=== PATIENT | female | born 1930 | race Caucasian/White ===

== ENCOUNTER 2016-06-27 15:02 | Emergency (ER) | payer MEDICARE ==
[2015-10-04 07:00] VITALS: BMI 27.6
[~2016-06-27 15:02] MED LIST: ACETAMINOPHEN325 MG PO; ASPIRIN81 MG PO; AUGMENTIN1 TAB.SR .; BACTRIM DS TABL1 TAB PO; BAYER ASPIRIN325 MG PO; BAYER CHEWABLE81 MG PO; BENADRYL25 MG PO; CALAN SR240 MG PO; CALCIUM 600+D T1 TA1 PO; COLACE100 MG PO; COUMADIN5 MG PO; CRANBERRY475 MG; CRANBERRY475 MG PO; DEXTROSE 50%/WA50 M2 IV; DIABETA2.5 MG PO; DIABETA5 MG PO; DICLOFENAC SODI50 MG PO; DITROPAN X5 MG/BOTTL PO; ELIQUIS2.5 MG PO; FERROUS SULFAT325 MG PO; FISH OIL 500 MG1 CAP PO; GLIMEPIRIDE1 MG PO; GLIMEPIRIDE2 MG PO; GLUCAGEN1 MG/VIAL IM; GLUCAGEN1 MG/VIAL SC; GLUCOPHAGE1000 MG PO; HUMALOG 30100 UNITS/ SC; IBUPROFEN400 MG PO; INSTA-GLUCOSE31 GM PO; LASIX40 MG PO; LEVAQUIN250 MG PO; LIPITOR10 MG PO; LISINOPRIL2.5 MG PO; LISINOPRIL5 MG PO; LOVAZA1 G PO; MILK OF MAGNESI30 ML PO; MOBIC7.5 MG PO; NEURONTIN 300300 MG PO; OXYCODONE HCL5 MG PO; PERCOCET 10/3251 TA1 PO; PLAVIX75 MG PO; PROTONIX40 MG PO; REGLAN10 MG PO; ROCEPHIN 1 GM IN1 GM IM; ROCEPHIN 1 GM IN1 GM IV; ULTRAM50 MG PO; VITAMIN B-1250 MG PO; VITAMIN D31000 UNI2 PO; VITAMIN D3400 UNI1 PO; VOLTAREN100 GM TOPICAL; ZANAFLEX4 MG PO; ZOFRAN4 MG PO
[2016-06-27 17:57] LABS: APPEARANCE CLEAR (CLEAR); COLOR YELLOW (YELLOW); SPECIFIC GRAVITY 1.015 (1.005-1.020)
[2016-06-27 17:58] LABS: BILIRUBIN NEGATIVE (NEGATIVE); GLUCOSE NEGATIVE (NEGATIVE); KETONE NEGATIVE (NEGATIVE); LEUKOCYTE ESTERASE NEGATIVE (NEGATIVE); NITRITE NEGATIVE (NEGATIVE); PROTEIN NEGATIVE (NEGATIVE); UROBILINOGEN NORMAL (NORMAL)
[2016-06-27 19:54] LABS: BASOPHILS 0.2 % (0.0-2.0); EOSINOPHILS 2.3 % (0-7); HEMOGLOBIN 10.8 g/dL (12-16); LYMPHOCYTES 27.4 % (15-50); MCH 29.4 pg (26.0-34.0); MCHC 32.7 g/dL (31.0-37.0); MCV 89.9 fL (80.0-100.0); MONOCYTES 8.6 % (2-11); NEUTROPHILS 61.5 % (40-80); PLATELET COUNT 335 10x3/uL (130-400); RBC 3.67 10x6/uL (4.00-5.40); RDW 12.5 % (11.5-14.5); WBC 8.3 10x3/uL (4.8-10.8)
[2016-06-27 20:13] LABS: ALBUMIN 3.5 g/dL (3.4-5.0); ANION GAP 12.3 mmol/L (8-16); BILIRUBIN - TOTAL 0.28 mg/dL (0.2-1.3); CALCIUM 10.1 mg/dL (8.5-10.1); CARBON DIOXIDE 33.2 mmol/L (21.0-32.0); CREATININE - SERUM 1.7 mg/dL (0.6-1.3); POTASSIUM - SERUM 4.5 mmol/L (3.5-5.1); PROTEIN - SERUM 7.9 g/dL (6.4-8.2)
== END 2016-06-27 21:46 | disposition home or self-care (01) ==
LOC: D.ER 15:02
PROVIDERS: Emergency Medicine
DX: R10.32 Left lower quadrant pain (principal); D63.8 Anemia in other chronic diseases classified elsewhere

== ENCOUNTER → 2016-07-04 08:00 | Outpatient (CLI) | payer MEDICARE ==
[2015-10-04 07:00] VITALS: BMI 27.6
== END ==
LOC: D.MRI 08:00
DX: R10.9 Unspecified abdominal pain (principal)

== ENCOUNTER 2016-11-04 21:31 | Inpatient (IN) | payer MEDICARE ==
[~2016-11-04] VITALS: Ht 167.6 cm; Wt 79.8 kg
[2016-11-04 22:08] LABS: BASOPHILS 0.1 % (0-2); EOSINOPHILS 0.5 % (0-7); HEMATOCRIT 31.4 % (36.0-48.0); HEMOGLOBIN 10.6 g/dL (12-16); IMMATURE GRANULOCYTES 0.1 % (0-5); LYMPHOCYTES 7.8 % (15-50); MCHC 33.8 g/dL (31.0-37.0); MCV 85.8 fL (80.0-100.0); MEAN PLATELET VOLUME 9.3 fL (7.4-10.4); MONOCYTES 6.7 % (2-11); NEUTROPHILS 84.8 % (40-80); PLATELET COUNT 345 10x3/uL (130-400); RBC 3.66 10x6/uL (4.00-5.40); RDW 12.5 % (11.5-14.5); WBC 13.9 10x3/uL (4.8-10.8)
[2016-11-04 22:31] LABS: APPEARANCE CLEAR (CLEAR); BILIRUBIN NEGATIVE (NEGATIVE); COLOR YELLOW (YELLOW); GLUCOSE NEGATIVE (NEGATIVE); KETONE NEGATIVE (NEGATIVE); LEUKOCYTE ESTERASE 2+ (NEGATIVE); NITRITE POSITIVE (NEGATIVE); PROTEIN NEGATIVE (NEGATIVE); UROBILINOGEN NORMAL (NORMAL)
[2016-11-04 22:33] LABS: BACTERIA MANY /hpf (NONE SEEN); EPITHELIAL CELLS 0-5 /hpf (0-5); RED CELLS - URINE 0-5 /hpf (0-5); WHITE CELLS - URINE 25-50 /hpf (0-5)
[2016-11-04 22:33] LABS: ALBUMIN 3.3 g/dL (3.4-5.0); ANION GAP 15.7 mmol/L (8-16); BILIRUBIN - TOTAL 0.31 mg/dL (0.2-1.3); CALCIUM 9.1 mg/dL (8.5-10.1); CREATININE - SERUM 2.1 mg/dL (0.6-1.3); POTASSIUM - SERUM 4.7 mmol/L (3.5-5.1); PROTEIN - SERUM 7.8 g/dL (6.4-8.2)
[2016-11-05] VITALS (7 sets, daily range): BP systolic 92–127; BP diastolic 42–53; Ht 167.6 cm; Wt 79.8 kg
--- NOTE | 2016-11-05 01:00 | NUR ---
PATIENT RECEIVED TO ROOM FROM ER VIA STRETCHER WITH FAMILY AND HOSPITAL STAFF. PATIENT IS AWAKE BUT LETHARGIC. SHE IS ORIENTED WHEN SHE ANSWERS QUESTIONS AND SHE FOLLOWS COMMANDS. RR EVEN AND UNLABORED. FAMILY STATES THAT PATIENT WAS SATTING IN THE 60'S AND 70'S AT THE ALF AND IN THE 80'S IN THE ER. O2 SATS ARE 94% NOW. PLACED PATIENT ON CONT. PULSE OX TO MONITOR AND PLACED O2 IN ROOM PRN. IV TO LEFT FA S/L. TELEMETRY ON PATIENT PER ORDER. SCD'S ON PATIENT PER ORDER. PATIENT REQUESTING SOMETHING FOR SLEEP AND PAIN. STATED THEY WERE TOLD IN ER THAT THEY WOULD BE GIVEN SOMETHING ON FLOOR BUT NO ORDERS. NOTIFIED ALEJANDRO HORVATH, TUBING MACHINE OPERATOR, WHO STATED SHE WOULD OBTAIN ORDERS.
--- NOTE | 2016-11-05 02:00 | NUR ---
HAVE NOT RECEIVED ORDERS FOR PAIN OR SLEEP MEDICATION. FAMILY NOW REQUESTING IV FLUIDS. NOTIFIED ALEJANDRO AGAIN. AWAITING ORDERS.
--- NOTE | 2016-11-05 02:45 | NUR ---
IV FLUIDS INITIATED PER NEW ORDER. DID NOT RECEIVE ORDERS FOR PAIN MEDICATION OR SLEEP MEDICATION.
[2016-11-05] MEDS ORDERED: BUMEX 1 MG TAB1 MG PO (04:38)
[2016-11-05] MEDS ORDERED: FUROSEMIDE40 MG PO (04:41)
[2016-11-05] MEDS ORDERED: ZOLOFT25 MG PO (04:44)
[2016-11-05] MEDS ORDERED: ZOFRAN4 MG PO (04:50)
[2016-11-05] MEDS ORDERED: JANUVIA100 MG PO (04:52)
[2016-11-05] MEDS ORDERED: ACETAMINOPHEN325 MG PO (04:55)
[2016-11-05] MEDS ORDERED: MILK OF MAGNESI30 ML PO (04:55)
[2016-11-05] MEDS ORDERED: ZANAFLEX4 MG PO (04:56)
[2016-11-05] MEDS ORDERED: ACIDOPHILUS LAC1 CAP PO (04:57)
[2016-11-05 06:16] LABS: BASOPHILS 0.1 % (0-2); EOSINOPHILS 1.1 % (0-7); HEMATOCRIT 26.1 % (36.0-48.0); HEMOGLOBIN 8.8 g/dL (12-16); IMMATURE GRANULOCYTES 0.3 % (0-5); LYMPHOCYTES 17.5 % (15-50); MCHC 33.7 g/dL (31.0-37.0); MCV 86.1 fL (80.0-100.0); MEAN PLATELET VOLUME 9.5 fL (7.4-10.4); MONOCYTES 8.7 % (2-11); NEUTROPHILS 72.3 % (40-80); PLATELET COUNT 306 10x3/uL (130-400); RBC 3.03 10x6/uL (4.00-5.40); RDW 12.5 % (11.5-14.5); WBC 10.8 10x3/uL (4.8-10.8)
[2016-11-05 06:30] LABS: ANION GAP 12.1 mmol/L (8-16); CALCIUM 8.7 mg/dL (8.5-10.1); POTASSIUM - SERUM 4.1 mmol/L (3.5-5.1)
--- NOTE | 2016-11-05 07:45 | NUR ---
PT LETHARGIC BUT WILL ANSWER QUESTIONS. FAMILY AT BEDSIDE IV TO LEFT AC PATENT AND INTACT AT THIS TIME SRX2 BED AT LOWEST SETTING CALL LIGHT WITHIN REACH WILL CONTINUE TO MONITOR
--- NOTE | 2016-11-05 16:49 | NUR ---
Patient has total Lt hip replacement. Unable to do MRI due to artifact. Patient and patient family notified. A call put in to Dr. Gross.
--- NOTE | 2016-11-05 19:25 | NUR ---
RECIEVED SHIFT REPORT. PT IS LYING IN BED. ALERT AND ORIENTED AND ABLE TO VERBALIZE NEEDS. IV IS PATENT AND FLUIDS ARE RUNNING PER ORDER. PT DENIES ANY PAIN AT THIS TIME. PT REQUIRES SOME ASSISTANCE TURNING IN BED FOR COMFORT AND SKIN CARE. ISOLATION PRECAUTIONS IN PLACE. NO NEEDS ARE VERBALIZED AT THIS TIME. DAUGHTER IS AT THE BEDSIDE. WILL CONTINUE TO MONITOR. SIDE RAILS ARE UP X 2. BED IS IN LOWEST POSITION. BOX ALARM IS ON FOR SAFETY. CALL LIGHT IS WITHIN REACH.
--- NOTE | 2016-11-05 21:06 | NUR ---
SHIFT ASSESSMENT COMPLETED. NIGHT MEDS GIVEN WITH NO PROBLEMS. PT RECIEVED 4 UNITS INSULIN PER SLIDING SCALE FOR NJRT=552. NO NEEDS ARE VOICED. DAUGHTER AT BEDSIDE. WILL MONITOR. SIDE RAILS X 2. BED LOW. BOX ALARM ON. CALL LIGHT IN REACH.
[2016-11-06] VITALS: BP 125/62
[2016-11-06 05:15] LABS: BASOPHILS 0.4 % (0-2); HEMATOCRIT 26.4 % (36.0-48.0); HEMOGLOBIN 8.8 g/dL (12-16); IMMATURE GRANULOCYTES 0.1 % (0-5); LYMPHOCYTES 28.4 % (15-50); MCH 28.9 pg (26.0-34.0); MCHC 33.3 g/dL (31.0-37.0); MCV 86.8 fL (80.0-100.0); MEAN PLATELET VOLUME 9.5 fL (7.4-10.4); MONOCYTES 12.8 % (2-11); NEUTROPHILS 54.3 % (40-80); PLATELET COUNT 304 10x3/uL (130-400); RBC 3.04 10x6/uL (4.00-5.40); RDW 12.6 % (11.5-14.5)
[2016-11-06 05:26] LABS: WBC 7.4 10x3/uL (4.8-10.8)
[2016-11-06 05:33] LABS: ANION GAP 10.9 mmol/L (8-16); BILIRUBIN - TOTAL 0.21 mg/dL (0.2-1.3); CALCIUM 8.5 mg/dL (8.5-10.1); CARBON DIOXIDE 28.3 mmol/L (21.0-32.0); CREATININE - SERUM 1.8 mg/dL (0.6-1.3); POTASSIUM - SERUM 4.2 mmol/L (3.5-5.1); PROTEIN - SERUM 6.1 g/dL (6.4-8.2)
[2016-11-06 05:37] LABS: ALBUMIN 2.4 g/dL (3.4-5.0)
[2016-11-06 07:54] VITALS: BP 121/50
--- NOTE | 2016-11-06 07:56 | NUR ---
PT AOX4 RESP EVEN AND NONLABORED PT RAMONA. PT DENIES NEEDS AT THIS TIME. PT SITTING UP IN CHAIR IN ROOM. FAMILY IN ROOM. PT IN ISOLATION FOR VRE IN URINE. CALL LIGHT WITHIN REACH WILL CONTINUE TO MONITOR
[2016-11-06 12:03] VITALS: BP 139/63
[2016-11-06 16:00] VITALS: BP 129/49
--- NOTE | 2016-11-06 19:30 | NUR ---
RECIEVED SHIFT REPORT. PT IS LYING IN BED. ALERT AND ORIENTED AND ABLE TO VERBALIZE NEEDS. IV IS PATENT AND FLUIDS ARE RUNNING PER ORDER. PT REQUIRES ASSISTANCE TURNING IN BED FOR COMFORT AND SKIN CARE. PT DENIES ANY PAIN AT THIS TIME. ISOLATION PRECAUTIONS IN PLACE. NO NEEDS ARE VERBALIZED AT THIS TIME. WILL CONTINUE TO MONITOR. FAMILY IS AT THE BEDSIDE. SIDE RAILS ARE UP X 2. BED IS IN LOWEST POSITION. BOX ALARM IS ON FOR SAFETY. CALL LIGHT IS WITHIN REACH.
[2016-11-06 20:00] VITALS: BP 124/55
--- NOTE | 2016-11-06 22:20 | NUR ---
SHIFT ASSESSMENT COMPLETED. NIGHT MEDS GIVEN WITH NO PROBLEMS. PT RECIEVED NO INSULIN PER SLIDING SCALE FOR VCRD=511. NO NEEDS ARE VOICED. WILL MONITOR. SIDE RAILS X 2. BED LOW. BOX ALARM ON. FAMILY AT BEDSIDE. CALL LIGHT IN REACH.
[2016-11-07 04:00] VITALS: BP 120/52
[2016-11-07 05:08] LABS: BASOPHILS 0.2 % (0-2); EOSINOPHILS 3.5 % (0-7); HEMATOCRIT 27.3 % (36.0-48.0); HEMOGLOBIN 8.9 g/dL (12-16); IMMATURE GRANULOCYTES 0.4 % (0-5); LYMPHOCYTES 25.5 % (15-50); MCH 28.8 pg (26.0-34.0); MCHC 32.6 g/dL (31.0-37.0); MCV 88.3 fL (80.0-100.0); MEAN PLATELET VOLUME 9.8 fL (7.4-10.4); MONOCYTES 13.8 % (2-11); NEUTROPHILS 56.6 % (40-80); PLATELET COUNT 295 10x3/uL (130-400); RBC 3.09 10x6/uL (4.00-5.40); RDW 12.8 % (11.5-14.5); WBC 8.2 10x3/uL (4.8-10.8)
[2016-11-07 05:30] LABS: ALBUMIN 2.4 g/dL (3.4-5.0); ANION GAP 10.8 mmol/L (8-16); BILIRUBIN - TOTAL 0.3 mg/dL (0.2-1.3); CARBON DIOXIDE 27.3 mmol/L (21.0-32.0); CREATININE - SERUM 1.6 mg/dL (0.6-1.3); POTASSIUM - SERUM 4.1 mmol/L (3.5-5.1); PROTEIN - SERUM 6.4 g/dL (6.4-8.2)
[2016-11-07 08:06] VITALS: BP 120/44
--- NOTE | 2016-11-07 08:15 | NUR ---
PT SITTING IN SEMI-RUTLEDGE POSITION IN BED AT THIS TIME. FAMILY AT BEDSIDE ASSISTING PT WITH BREAKFAST. NO COMPLAINTS OF PAIN OR DISCOMFORT AT THIS TIME. BED IN LOW POSITION AND CALL LIGHT WITHIN REACH. WILL CONTINUE TO MONITOR.
--- NOTE | 2016-11-07 09:11 | NUR ---
Patient Name: MARIO FERRARI Admission Status: ER Accout number: [id number] Admission Date: 11-04-2016 : 1930 Admission Diagnosis:URINARY TRACT INFECTION, SITE NOT SPECIFIED Attending: ARLENE Current LOS: 3 Anticipated DC Date: Planned Disposition: Alf Facility Primary Insurance: MEDICARE A & B Discharge Planning Comments: CM NOTE: CM met with patient and daughter (Felipe Hurd) [phone] to assess discharge planning/needs. Daughter states that she is a resident at [facility] where she plans to return to at discharge. Daughter said the past week she has been so weak that she has been using a wheelchair. PCP Dr Hansen and Pharmacy is inhouse. CM will continue to follow and assist as needed with discharge planning/needs. PCP: Jade Pharmacy: In house [facility] Felipe Hurd (daughter) [phone] [employer] Supervisor: Perri Eng * Is the patient Alert and Oriented? Yes 0 * How many steps to enter\exit or inside your home? 0 0 * PCP JADE 0 * Pharmacy [facility] 0 * Preadmission Environment [facility] 0 * ADLs Total Dependent 0 * Equipment Hospital Bed Walker Wheelchair 0 * List name and contact numbers for known caregivers / representatives who currently or will assist patient after discharge: FELIPE HURD (DAUGHTER) [phone] 0 * Community resources currently utilized None 0 * Please name any agencies selected above. [facility] 0 * Additional services required to return to the preadmission environment? No 0 * Can the patient safely return to the preadmission environment? Yes 0 * Has this patient been hospitalized within the prior 30 days at any hospital? No 0 Grand Total: 0
--- NOTE | 2016-11-07 12:43 | NUR ---
COMPLETE BED BATH AND LINEN CHANGE PROVIDED DUE TO INCONTINENCE OF URINE. REPOSITIONED UP IN BED. SCD'S PLACED ON. LUNCH TRAY AT BEDSIDE. BOX ALARM ATTATCHED, BED LOW, CALL LIGHT IN REACH, DENIES NEEDS. CPOC.
[2016-11-07 12:48] VITALS: BP 123/45
[2016-11-07 16:02] VITALS: BP 127/49
--- NOTE | 2016-11-07 19:20 | NUR ---
RECIEVED SHIFT REPORT. PT IS LYING IN BED. ALERT AND ORIENTED AND ABLE TO VERBALIZE NEEDS. IV IS PATENT AND FLUIDS ARE RUNNING PER ORDER. PT REQUIRES ASSISTANCE TURNING IN BED FOR COMFORT AND SKIN CARE. SCD'S ON. PT DENIES ANY PAIN AT THIS TIME. ISOLATION PRECAUTIONS ARE IN PLACE. NO NEEDS ARE VERBALIZED AT THIS TIME. WILL CONTINUE TO MONITOR. FAMILY IS AT THE BEDSIDE. SIDE RAILS ARE UP X 2. BED IS IN LOWEST POSITION. CALL LIGHT IS WITHIN REACH.
[2016-11-07 20:00] VITALS: BP 101/44
--- NOTE | 2016-11-07 20:28 | NUR ---
SHIFT ASSESSMENT COMPLETED. NIGHT MEDS GIVEN WITH NO PROBLEMS. PT RECIEVED NO INSULIN PER SLIDING SCAL FOR MVZI=313. NO NEEDS ARE VOICED. FAMILY AT BEDSIDE. WILL MONITOR. SIDE RAILS X 2. BED LOW. CALL LIGHT IN REACH.
--- NOTE | 2016-11-07 23:27 | NUR ---
CONTINUOUS PULSE OX TAKEN OFF AT THIS TIME. NO ORDER VIEWED FOR REASON FOR THE CONTINUOUS MONITORING. PT PULSE OX STABLE.
[2016-11-08] VITALS: BP 142/50
[2016-11-08 04:00] VITALS: BP 126/61
[2016-11-08 05:36] LABS: BASOPHILS 0.3 % (0-2); EOSINOPHILS 4.4 % (0-7); HEMATOCRIT 27.9 % (36.0-48.0); IMMATURE GRANULOCYTES 0.1 % (0-5); LYMPHOCYTES 22.1 % (15-50); MCH 28.5 pg (26.0-34.0); MCHC 32.3 g/dL (31.0-37.0); MCV 88.3 fL (80.0-100.0); MEAN PLATELET VOLUME 9.4 fL (7.4-10.4); MONOCYTES 9.4 % (2-11); NEUTROPHILS 63.7 % (40-80); PLATELET COUNT 333 10x3/uL (130-400); RBC 3.16 10x6/uL (4.00-5.40); RDW 12.5 % (11.5-14.5); WBC 8.9 10x3/uL (4.8-10.8)
[2016-11-08 05:57] LABS: ALBUMIN 2.3 g/dL (3.4-5.0); ANION GAP 12.5 mmol/L (8-16); BILIRUBIN - TOTAL 0.22 mg/dL (0.2-1.3); CALCIUM 8.8 mg/dL (8.5-10.1); CARBON DIOXIDE 25.6 mmol/L (21.0-32.0); CREATININE - SERUM 1.4 mg/dL (0.6-1.3); POTASSIUM - SERUM 4.1 mmol/L (3.5-5.1); PROTEIN - SERUM 6.3 g/dL (6.4-8.2)
[2016-11-08 07:53] VITALS: BP 137/60
--- NOTE | 2016-11-08 08:45 | NUR ---
PT ASSESSMENT COMPLETE AWAKE AND ALERT ORINETD X 2 VOICES ALL NEEDS TO STAFF FAMILY AT BEDSIDE REMAINS ON CONTACT ISOLATION FOR VRE IN URINE INCT OF BOWEL AND BLADDER PT SKIN WITH NO NOTED BREAKDOWN .
--- NOTE | 2016-11-08 10:42 | NUR ---
PT ASLEEP WITH HOB AT 30DEGREEES, FAMILY AT BEDSIDE. BED IN LOW POSITION AND CALL LIGHT WITHIN REACH. WILL CONTINUE TO MONTIOR.
--- NOTE | 2016-11-08 11:41 | NUR ---
NO ACUTE DISTRESS NOTED PT RESTING WELL WITH EYES CLOSED FAMILY AT BEDSIDE. FSBS 111 NO COVERAGE NEEDED
--- NOTE | 2016-11-08 11:50 | NUR ---
DR LANG HERE FOR PT CARE ROUNDS AND NEW ORDER FOR CONSULT DR BRADLEY FOR MDRO UTI
[2016-11-08 12:32] VITALS: BP 132/54
--- NOTE | 2016-11-08 13:10 | NUR ---
NUTRITION MONITORING & EVAL CHART REVIEWED. PT REMAINS IN ISOLATION. TOLERATING REG DIET, PT REPORTS GOOD PO INTAKE. ~50 TO 75% OF MOST MEALS. RD FOLLOWING
--- NOTE | 2016-11-08 13:18 | NUR ---
NO DISTRESS RESTING IN BED SEMI FOWLERS CALL LIGHT IN REACH SIDE RAILS UP X 2
--- NOTE | 2016-11-08 14:04 | NUR ---
11/08/2016 13:57 DCP: Discharge Planning Patient Name: MARIO FERRARI Encounter No: [id number] : 1930 Primary Insurance: MEDICARE A & B Anticipated DC Date: 11-09-2016 Planned Disposition: Senior Care Facility External Planned Provider: [facility] DCP follow-up note: Anticipate DC later this afternoon vs tomorrow. Waiting on ID consult to determine abx. Discussed with daughter & patient. Patient and family in agreement with discharge plan. No changes to plan. Notified Angelina at [facility] of above. Case management will follow and assist as needed. Maxine Kathleen
[2016-11-08 15:36] VITALS: BP 124/47
--- NOTE | 2016-11-08 18:44 | NUR ---
PT SPOON FED 100 % OF SUPPER MEAL PLUS A VANILLA ICE CREAM PER DAUGHTER. CALL LIGHT INREACH SIDE RAILS UP X 2
--- NOTE | 2016-11-08 19:10 | NUR ---
BEDSIDE REPORT RECEIVED AND CARE OF PT ASSUMED. PT LYING IN SEMI RUTLEDGE'S POSITION VISITING WITH FAMILY MEMBER. IV IN RIGHT WRIST WITH NS INFUSING AT 35 ML / HR. TELEMETRY IN PLACE AND READING SR AT THIS ASSESSMENT. WILL MONITOR MEKHI FOR NEEDS.
[2016-11-08 20:00] VITALS: BP 117/48
--- NOTE | 2016-11-08 20:53 | NUR ---
HS MEDICATIONS GIVEN. FSBS 111 THIS ASSESSMENT REQUIRING NO COVERAGE PER SLIDING SCALE. DAUGHTER IS AT BEDSIDE.
--- NOTE | 2016-11-08 21:05 | NUR ---
HS SNACK GIVEN: SKIM MILK, RONALD CRACKERS AND JELLO.
[2016-11-09] VITALS: BP 144/53
[2016-11-09 04:00] VITALS: BP 111/50
[2016-11-09 05:12] LABS: BASOPHILS 0.6 % (0-2); EOSINOPHILS 6.6 % (0-7); HEMATOCRIT 27.2 % (36.0-48.0); HEMOGLOBIN 8.9 g/dL (12-16); IMMATURE GRANULOCYTES 0.1 % (0-5); LYMPHOCYTES 25.6 % (15-50); MCH 28.8 pg (26.0-34.0); MCHC 32.7 g/dL (31.0-37.0); MEAN PLATELET VOLUME 8.9 fL (7.4-10.4); MONOCYTES 13.8 % (2-11); NEUTROPHILS 53.3 % (40-80); PLATELET COUNT 335 10x3/uL (130-400); RBC 3.09 10x6/uL (4.00-5.40); RDW 12.6 % (11.5-14.5); WBC 6.7 10x3/uL (4.8-10.8)
[2016-11-09 05:40] LABS: ALBUMIN 2.4 g/dL (3.4-5.0); ANION GAP 10.4 mmol/L (8-16); BILIRUBIN - TOTAL 0.26 mg/dL (0.2-1.3); CARBON DIOXIDE 27.8 mmol/L (21.0-32.0); CREATININE - SERUM 1.3 mg/dL (0.6-1.3); POTASSIUM - SERUM 4.2 mmol/L (3.5-5.1); PROTEIN - SERUM 6.4 g/dL (6.4-8.2)
--- NOTE | 2016-11-09 07:30 | NUR ---
PT ASSESSMENT AWAKE AND ALERT ORINETD X 3 LUNS CLAER BILATERAL PT IS MORE AWAKE THIS AM THAN YESTERDAYS ASSESSMENT. BSA X 4 QUADS ABDOMEN SOFT AND NON TENDER. DAUGHTER AT BEDSIDE.
[2016-11-09 09:19] VITALS: BP 135/60
[2016-11-09] MEDS ORDERED: AMOXICILLIN500 M1 PO (09:28)
--- NOTE | 2016-11-09 09:58 | NUR ---
NURSE IN ROOM WITH PT AT THIS TIME. REMAINS IN ISOLATION. CALL LIGHT IN REACH. PT TO D/C BACK TO [facility] TODAY. WILL CONTINUE WITH PLAN OF CARE.
--- NOTE | 2016-11-09 10:01 | NUR ---
Patient Name: MARIO FERRARI Encounter No: [id number] : 1930 Primary Insurance: MEDICARE A & B Anticipated DC Date: 11-09-2016 Planned Disposition: Senior Care Facility External Planned Provider: [facility] DCP follow-up note: DC order rec'd. Patient and family in agreement with discharge plan. Updated orders and requested information faxed to SNF. Patient will be transported by facility van. Waiting picker time. Nursing to call report to [phone]. Maxine Kathleen
--- NOTE | 2016-11-09 10:32 | NUR ---
Rec'd call from Angelina with [facility] - transport van will pick patient up around noon to transfer to a detention bed.
--- NOTE | 2016-11-09 11:34 | NUR ---
REPORT CALLED TO DUNIA AT [phone] PIV D/C AWAITING TRANSPORT VIA FACILITY VAN.
--- NOTE | 2016-11-09 12:20 | NUR ---
PT DISCHARGED VIA FACILITY [facility] DAUGHTER AT SIDE
== END 2016-11-09 14:09 | DRG 690 ==
LOC: D.ER 21:31 → D.MS 23:12
PROVIDERS: Family Medicine; Physician Assistant Medical; ADMIT Family Medicine
DX: N39.0 Urinary tract infection, site not specified (principal); M25.551 Pain in right hip; I12.9 Hypertensive chronic kidney disease with stage 1 through stage 4 chronic kidney disease, or unspecified chronic kidney disease; E11.22 Type 2 diabetes mellitus with diabetic chronic kidney disease; N18.3 Chronic kidney disease, stage 3 (moderate); E11.40 Type 2 diabetes mellitus with diabetic neuropathy, unspecified; N19 Unspecified kidney failure; I69.398 Other sequelae of cerebral infarction; G91.4 Hydrocephalus in diseases classified elsewhere

== ENCOUNTER 2016-12-20 18:32 | Emergency (ER) | payer MEDICARE ==
[2016-11-05 11:46] VITALS: BMI 28.4
[~2016-12-20 18:32] MED LIST changes: +ACIDOPHILUS LAC1 CAP PO; +AMOXICILLIN500 M1 PO; +BUMEX 1 MG TAB1 MG PO; +FUROSEMIDE40 MG PO; +JANUVIA100 MG PO; +ZOLOFT25 MG PO
[2016-12-20 19:43] LABS: BASOPHILS 0.6 % (0-2); EOSINOPHILS 3.5 % (0-7); HEMATOCRIT 30.9 % (36.0-48.0); HEMOGLOBIN 10.6 g/dL (12-16); IMMATURE GRANULOCYTES 0.1 % (0-5); LYMPHOCYTES 24.9 % (15-50); MCH 28.6 pg (26.0-34.0); MCHC 34.3 g/dL (31.0-37.0); MCV 83.5 fL (80.0-100.0); MONOCYTES 5.1 % (2-11); NEUTROPHILS 65.8 % (40-80); RDW 12.9 % (11.5-14.5); WBC 7.2 10x3/uL (4.8-10.8)
[2016-12-20 19:49] LABS: PLATELET COUNT 161 10x3/uL (130-400)
[2016-12-20 19:51] LABS: APTT 30.4 SECONDS (22.8-39.4); INR 1.02 (0.85-1.17); PROTIME 13.2 SECONDS (11.6-15.0)
[2016-12-20 19:57] LABS: ALBUMIN 3.5 g/dL (3.4-5.0); ANION GAP 17.1 mmol/L (8-16); BILIRUBIN - TOTAL 0.4 mg/dL (0.2-1.3); CALCIUM 9.6 mg/dL (8.5-10.1); CARBON DIOXIDE 21.3 mmol/L (21.0-32.0); CREATININE - SERUM 2.5 mg/dL (0.6-1.3); POTASSIUM - SERUM 5.4 mmol/L (3.5-5.1); PROTEIN - SERUM 7.9 g/dL (6.4-8.2)
== END 2016-12-20 22:15 | disposition home or self-care (01) ==
LOC: D.ER 18:32
PROVIDERS: Emergency Medicine
DX: E86.0 Dehydration (principal); N17.9 Acute kidney failure, unspecified; E87.5 Hyperkalemia

== ENCOUNTER 2017-04-23 13:16 | Outpatient (CLI) | payer MEDICARE ==
[2017-04-23 14:29] VITALS: BP 121/47; Ht 167.6 cm
== END 2017-04-23 14:50 | disposition home or self-care (01) ==
LOC: D.OPS 13:16
DX: N39.0 Urinary tract infection, site not specified (principal)

== ENCOUNTER 2017-09-14 00:08 | Inpatient (IN) | payer MEDICARE ==
[~2017-09-14] VITALS: Ht 167.6 cm; Wt 92.3 kg
[2017-09-14 01:02] LABS: BASOPHILS 0.7 % (0-2); EOSINOPHILS 8.3 % (0-7); HEMATOCRIT 29.6 % (36.0-48.0); HEMOGLOBIN 10.3 g/dL (12-16); IMMATURE GRANULOCYTES 0.1 % (0-5); LYMPHOCYTES 25.2 % (15-50); MCH 28.8 pg (26.0-34.0); MCHC 34.8 g/dL (31.0-37.0); MCV 82.7 fL (80.0-100.0); MEAN PLATELET VOLUME 9.2 fL (7.4-10.4); MONOCYTES 13.8 % (2-11); NEUTROPHILS 51.9 % (40-80); RBC 3.58 10x6/uL (4.00-5.40); RDW 13.2 % (11.5-14.5)
[2017-09-14 01:06] LABS: PLATELET COUNT 288 10x3/uL (130-400)
[2017-09-14 01:15] LABS: ALBUMIN 3.1 g/dL (3.4-5.0); ANION GAP 11.8 mmol/L (8-16); BILIRUBIN - TOTAL 0.1 mg/dL (0.2-1.3); CALCIUM 9.1 mg/dL (8.5-10.1); CARBON DIOXIDE 26.9 mmol/L (21.0-32.0); CREATININE - SERUM 1.7 mg/dL (0.6-1.3); POTASSIUM - SERUM 4.7 mmol/L (3.5-5.1); PROTEIN - SERUM 7.9 g/dL (6.4-8.2)
[2017-09-14 01:17] LABS: APPEARANCE HAZY (CLEAR); BACTERIA FEW /hpf (NONE SEEN); BILIRUBIN NEGATIVE (NEGATIVE); COLOR YELLOW (YELLOW); EPITHELIAL CELLS RARE /hpf (0-5); GLUCOSE NEGATIVE (NEGATIVE); KETONE NEGATIVE (NEGATIVE); NITRITE NEGATIVE (NEGATIVE); PROTEIN NEGATIVE (NEGATIVE); RED CELLS - URINE NONE SEEN /hpf (0-5); SPECIFIC GRAVITY 1.015 (1.005-1.020); UROBILINOGEN NORMAL (NORMAL)
[2017-09-14] MEDS ORDERED: CEFTRIAXONE1 G/VIAL IM (06:16)
[2017-09-14] MEDS ORDERED: OXYBUTYNIN CHLOR5 MG PO (06:18)
[2017-09-14] MEDS ORDERED: GABAPENTIN100 MG PO (06:23)
[2017-09-14] MEDS ORDERED: COLACE100 MG PO (06:25)
[2017-09-14 06:32] VITALS: BP 129/66
[2017-09-14] MEDS ORDERED: IBUPROFEN400 MG PO (06:32)
[2017-09-14] MEDS ORDERED: MIRALAX17 GM PO (06:33)
[2017-09-14 08:00] VITALS: BP 123/58
[2017-09-14 13:07] VITALS: Ht 167.6 cm; Wt 92.3 kg
[2017-09-14 20:00] VITALS: BP 151/62
[2017-09-15] VITALS: BP 122/46
[2017-09-15 06:14] VITALS: BP 141/68
[2017-09-15 06:41] LABS: BASOPHILS 0.5 % (0-2); EOSINOPHILS 7.9 % (0-7); HEMATOCRIT 28.5 % (36.0-48.0); HEMOGLOBIN 9.7 g/dL (12-16); IMMATURE GRANULOCYTES 0.3 % (0-5); LYMPHOCYTES 23.9 % (15-50); MCH 28.4 pg (26.0-34.0); MCV 83.6 fL (80.0-100.0); MEAN PLATELET VOLUME 9.3 fL (7.4-10.4); MONOCYTES 12.2 % (2-11); NEUTROPHILS 55.2 % (40-80); PLATELET COUNT 283 10x3/uL (130-400); RBC 3.41 10x6/uL (4.00-5.40); RDW 13.5 % (11.5-14.5); WBC 7.9 10x3/uL (4.8-10.8)
[2017-09-15 06:49] LABS: ANION GAP 13.8 mmol/L (8-16); CALCIUM 8.5 mg/dL (8.5-10.1); CARBON DIOXIDE 23.8 mmol/L (21.0-32.0); CREATININE - SERUM 1.5 mg/dL (0.6-1.3); POTASSIUM - SERUM 4.6 mmol/L (3.5-5.1)
[2017-09-15 08:19] VITALS: BP 154/69
[2017-09-15 12:19] VITALS: BP 138/47
[2017-09-15 15:44] VITALS: BP 122/46
[2017-09-15 20:21] VITALS: BP 112/44
[2017-09-16 04:05] VITALS: BP 111/86
[2017-09-16 05:55] LABS: BASOPHILS 0.2 % (0-2); HEMATOCRIT 29.2 % (36.0-48.0); HEMOGLOBIN 9.8 g/dL (12-16); IMMATURE GRANULOCYTES 0.6 % (0-5); LYMPHOCYTES 18.9 % (15-50); MCH 28.1 pg (26.0-34.0); MCHC 33.6 g/dL (31.0-37.0); MCV 83.7 fL (80.0-100.0); MEAN PLATELET VOLUME 9.4 fL (7.4-10.4); MONOCYTES 14.3 % (2-11); PLATELET COUNT 293 10x3/uL (130-400); RBC 3.49 10x6/uL (4.00-5.40); RDW 13.6 % (11.5-14.5); WBC 9.8 10x3/uL (4.8-10.8)
[2017-09-16 06:15] LABS: ALBUMIN 2.7 g/dL (3.4-5.0); ANION GAP 15.6 mmol/L (8-16); BILIRUBIN - TOTAL 0.25 mg/dL (0.2-1.3); CALCIUM 8.6 mg/dL (8.5-10.1); CARBON DIOXIDE 21.8 mmol/L (21.0-32.0); CREATININE - SERUM 1.4 mg/dL (0.6-1.3); POTASSIUM - SERUM 4.4 mmol/L (3.5-5.1); PROTEIN - SERUM 7.1 g/dL (6.4-8.2)
[2017-09-16 07:54] VITALS: BP 133/65
[2017-09-16 11:46] VITALS: BP 96/57
[2017-09-16 21:52] VITALS: BP 144/69
[2017-09-17 00:37] VITALS: BP 148/68
[2017-09-17 04:36] LABS: BASOPHILS 0.2 % (0-2); EOSINOPHILS 0.7 % (0-7); HEMATOCRIT 29.3 % (36.0-48.0); HEMOGLOBIN 9.8 g/dL (12-16); IMMATURE GRANULOCYTES 0.2 % (0-5); LYMPHOCYTES 13.4 % (15-50); MCH 27.9 pg (26.0-34.0); MCHC 33.4 g/dL (31.0-37.0); MCV 83.5 fL (80.0-100.0); MEAN PLATELET VOLUME 9.3 fL (7.4-10.4); MONOCYTES 11.7 % (2-11); NEUTROPHILS 73.8 % (40-80); PLATELET COUNT 285 10x3/uL (130-400); RBC 3.51 10x6/uL (4.00-5.40); RDW 13.6 % (11.5-14.5)
[2017-09-17 04:39] LABS: WBC 12.7 10x3/uL (4.8-10.8)
[2017-09-17 04:59] VITALS: BP 154/74
[2017-09-17 05:00] LABS: ALBUMIN 2.3 g/dL (3.4-5.0); ANION GAP 13.7 mmol/L (8-16); BILIRUBIN - TOTAL 0.38 mg/dL (0.2-1.3); CALCIUM 8.6 mg/dL (8.5-10.1); CARBON DIOXIDE 23.1 mmol/L (21.0-32.0); CREATININE - SERUM 1.2 mg/dL (0.6-1.3); POTASSIUM - SERUM 4.8 mmol/L (3.5-5.1); PROTEIN - SERUM 6.5 g/dL (6.4-8.2)
[2017-09-17 12:02] VITALS: BP 142/66
[2017-09-17 21:02] VITALS: BP 134/66
[2017-09-18 00:04] VITALS: BP 124/68
[2017-09-18 06:26] LABS: BASOPHILS 0.2 % (0-2); EOSINOPHILS 4.4 % (0-7); HEMATOCRIT 29.3 % (36.0-48.0); HEMOGLOBIN 9.7 g/dL (12-16); IMMATURE GRANULOCYTES 0.5 % (0-5); LYMPHOCYTES 12.6 % (15-50); MCH 27.7 pg (26.0-34.0); MCHC 33.1 g/dL (31.0-37.0); MCV 83.7 fL (80.0-100.0); MEAN PLATELET VOLUME 9.6 fL (7.4-10.4); MONOCYTES 13.9 % (2-11); NEUTROPHILS 68.4 % (40-80); PLATELET COUNT 287 10x3/uL (130-400); RDW 13.7 % (11.5-14.5); WBC 11.2 10x3/uL (4.8-10.8)
[2017-09-18 07:03] LABS: ALBUMIN 2.3 g/dL (3.4-5.0); ANION GAP 13.5 mmol/L (8-16); BILIRUBIN - TOTAL 0.48 mg/dL (0.2-1.3); CALCIUM 8.7 mg/dL (8.5-10.1); CARBON DIOXIDE 25.6 mmol/L (21.0-32.0); CREATININE - SERUM 1.4 mg/dL (0.6-1.3); POTASSIUM - SERUM 4.1 mmol/L (3.5-5.1); PROTEIN - SERUM 6.7 g/dL (6.4-8.2)
[2017-09-18 08:06] VITALS: BP 134/65
[2017-09-18 12:13] VITALS: BP 135/82
[2017-09-18 15:58] VITALS: BP 109/53
[2017-09-18 20:51] VITALS: BP 113/71
[2017-09-18 23:58] VITALS: BP 122/55
[2017-09-19 04:30] VITALS: BP 128/58
[2017-09-19 05:36] LABS: BASOPHILS 0.3 % (0-2); EOSINOPHILS 7.6 % (0-7); HEMATOCRIT 27.7 % (36.0-48.0); HEMOGLOBIN 9.4 g/dL (12-16); IMMATURE GRANULOCYTES 0.6 % (0-5); MCH 28.3 pg (26.0-34.0); MCHC 33.9 g/dL (31.0-37.0); MCV 83.4 fL (80.0-100.0); MEAN PLATELET VOLUME 9.5 fL (7.4-10.4); MONOCYTES 14.8 % (2-11); NEUTROPHILS 61.7 % (40-80); PLATELET COUNT 277 10x3/uL (130-400); RBC 3.32 10x6/uL (4.00-5.40); RDW 13.8 % (11.5-14.5); WBC 11.4 10x3/uL (4.8-10.8)
[2017-09-19 06:13] LABS: ALBUMIN 2.1 g/dL (3.4-5.0); BILIRUBIN - TOTAL 0.3 mg/dL (0.2-1.3); CALCIUM 8.7 mg/dL (8.5-10.1); CARBON DIOXIDE 27.2 mmol/L (21.0-32.0); CREATININE - SERUM 1.3 mg/dL (0.6-1.3); POTASSIUM - SERUM 4.2 mmol/L (3.5-5.1); PROTEIN - SERUM 6.6 g/dL (6.4-8.2)
[2017-09-19 08:18] VITALS: BP 156/66
[2017-09-19 12:44] VITALS: BP 124/63
[2017-09-19] MEDS ORDERED: MERREM 1 GM/NS 11 G1 IV (13:01)
[2017-09-19] MEDS ORDERED: VANCOMYCIN 1 GM/1 G1 IV (13:01)
[2017-09-19] MEDS ORDERED: GABAPENTIN100 MG PO (13:01)
[2017-09-19] MEDS ORDERED: Levaquin PREMIX IV (13:01)
[2017-09-19] MEDS ORDERED: NORVASC5 MG PO (13:01)
== END 2017-09-19 17:49 | DRG 689 ==
LOC: D.ER 00:08 → D.MS 03:34 → D.EDHOLD 03:34 → D.MS 05:08 → D.SDCHOLD 09-16 15:35 → D.MS 09-16 15:35 → D.SDCHOLD 09-16 15:35 → D.MS 09-19 17:49
PROVIDERS: Emergency Medicine; Family Medicine
DX: N39.0 Urinary tract infection, site not specified (principal); J18.9 Pneumonia, unspecified organism; G93.41 Metabolic encephalopathy; N17.9 Acute kidney failure, unspecified; E87.1 Hypo-osmolality and hyponatremia; E11.22 Type 2 diabetes mellitus with diabetic chronic kidney disease; E11.65 Type 2 diabetes mellitus with hyperglycemia; I12.9 Hypertensive chronic kidney disease with stage 1 through stage 4 chronic kidney disease, or unspecified chronic kidney disease; N18.3 Chronic kidney disease, stage 3 (moderate); K59.09 Other constipation; K21.9 Gastro-esophageal reflux disease without esophagitis; Z98.2 Presence of cerebrospinal fluid drainage device

== ENCOUNTER 2017-09-19 16:23 | Inpatient (IN) | payer MEDICARE ==
[~2017-09-19] VITALS: Ht 167.6 cm; Wt 91.2 kg
--- NOTE | ~2017-09-19 | RHP ---
PATIENT: MARIO FERRARI MEDICAL RECORD: [id number] ACCOUNT: [id number] LOCATION:[facility]1119 : [birth year] ADMISSION DATE: 09/19/17 REHABILITATION HISTORY AND PHYSICAL EXAMINATION POST ADMISSION PHYSICIAN EXAMINATION POST-ADMISSION PHYSICAL EXAMINATION AND HISTORY AND PHYSICAL DATE OF ADMISSION: 09/19/2017 ADMITTING DIAGNOSIS: Disuse myopathy. 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 She resides in [facility], was admitted through the ED for complaints of mild confusion, low-grade fevers, recent UTI, and failed outpatient therapy. The patient was diagnosed 10 days ago with UTI and was treated with IM Rocephin. She has a past medical history of neuropathy, CVA, hydrocephalus, and had a COOKING CHEF shunt placed in the past, carotid endarterectomy, diabetes, hypertension, coronary artery disease. She was admitted to the acute hospital on 09/14 with decline in her mobility and noted proximal muscle weakness with difficulty rising from bed to chair. A PT eval on 09/14 was noted with minimal assist with transfers, now requiring max assist. She is only noted to ambulate 1 foot over to the chair during her acute hospital stay on prior hospitalization. She was noted to ambulate moderately independent with the use of a rolling walker at the senior living. She was set up for assist with ADLs prior and is now requiring min-to-max assist. She was admitted with increased confusion, hyponatremia, elevation of her BUN. She wears oxygen only as needed when she was sick at the senior living. She is requiring 3.5 liters now. 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 She and her family plan on her returning to the senior living at her prior level of functioning or better if possible. Comorbidities in this patient include dysphagia, chronic CVA, acute UTI, chronic diabetic gastroparesis, taykx-rr-qjrthld renal failure, chronic hypertension, chronic iron deficiency anemia, chronic age-related physical debility, chronic gastroesophageal reflux disease, COOKING CHEF shunt, type 2 diabetes, osteoarthritis, fever, chronic cerebral ventriculomegaly. PAST MEDICAL HISTORY: Significant for neuropathy, stroke, hydrocephalus, hard of hearing, diabetes, hypertension, coronary artery disease, skin cancer in her face, urinary retention, chronic kidney disease stage IV, and arthritis. PAST SURGICAL HISTORY: Includes a left carotid endarterectomy, back surgery, cataract surgery, ovarian cyst removal. She had a left hip fracture. She has had a right total hip arthroplasty in 2013. She has had a shunt placement and a left total hip arthroplasty. ALLERGIES: STATINS AND CODEINE. CURRENT MEDICATIONS: Include Merrem 1 gram every 12 hours, Levaquin 500 mg every 24 hours, Januvia 100 mg daily, omega-3 one cap daily, Protonix 40 mg daily, Ditropan XL 5 mg daily, lactobacillus 1 tab t.i.d. with meals, furosemide 40 mg daily, vitamin D 1000 units daily, amlodipine 5 mg daily, nystatin powder to use as needed, vancomycin 1 gram every 12 hours, Motrin 400 mg t.i.d., Neurontin 200 mg at bedtime, Colace 100 mg b.i.d., Tylenol 650 every 8 hours HISTORY AND PHYSICAL [id number] BOWLING,MARIO SILVIA p.r.n., and polyethylene glycol 17 g in 8 ounces of water daily. HABITS: No current alcohol or tobacco use. FAMILY HISTORY: Noncontributory. SOCIAL HISTORY: The patient will return back to her senior living and get back to her prior level of functioning. REVIEW OF SYSTEMS: GENERAL: Does complain of weakness. HEENT: Denies cold, cough, or congestion. CARDIOVASCULAR: Denies chest pain. PHYSICAL EXAMINATION: VITAL SIGNS: Stable, afebrile. GENERAL: A somewhat obese female, in no acute distress upon exam. HEENT: Normocephalic and atraumatic. Mucosa moist. NECK: Supple. No lymphadenopathy. LUNGS: Clear at this time. HEART: Irregular rate and rhythm. ABDOMEN: Benign. EXTREMITIES: No clubbing, cyanosis or edema. NEUROLOGIC: She is slow to mentate. LABORATORY DATA: White count is 10.3, H&H of 8.7 and 26.6, and platelet count was 301. Sodium 134, potassium 4.2, BUN and creatinine of 19 and 1.3, blood sugar is noted to be 152. ASSESSMENT: This is an 87-year-old female patient admitted to rehab with a working diagnosis of disuse myopathy. The patient has potential to make improvement. We will institute the following multidisciplinary therapies including, but not limited to physical, occupational, respiratory, speech, nutritional services, prosthetics and orthotics. Given her complex medical condition and risk for more complications, rehabilitation services cannot be provided at a low level of care such as a residential facility. PLAN: 1. Admit to [facility] for intensive inpatient therapy to include the following disciplines: A. Physical therapy to improve gait, all transfer skills and bed mobility to a modified independent level. B. Occupational therapy to improve activities of daily living to a modified independent level. C. Case management to assist with discharge planning and placement options. D. Nutrition to assist with nutritional needs. E. Rehabilitation nursing to assist in monitoring the patient's underlying medical conditions and to assist with any type of bowel or bladder management. 2. The patient's current medications and medical care will be continued. 3. The patient will be placed on standard fall precautions. 4. The patient's estimated length of stay is approximately 7-10 days. 5. We will go ahead and continue on her antibiotics. Repeat her UA as necessary. 6. I will follow up on Saturday morning or earlier if necessary. HISTORY AND PHYSICAL [id number] MARIO FERRARI TRANSINT:[id number] Voice Confirmation ID: [id number] DOCUMENT ID: [id number] YARELIS notes whether there has been none or any medical/functional change since admission: - No change since prescreen. YARELIS attests patient continues to be appropriate for IRF: - Continues to be appropriate. MATILDA REHMAN MD at 0906 CC: [id number] DICTATION DATE: 09/20/17 0843 SORT MANAGER: 09/20/17 0934 ADM IN [facility] [address] [place] [address]
[~2017-09-19 16:23] MED LIST changes: +CEFTRIAXONE1 G/VIAL IM; +GABAPENTIN100 MG PO; +Levaquin PREMIX IV; +MERREM 1 GM/NS 11 G1 IV; +MIRALAX17 GM PO; +NORVASC5 MG PO; +OXYBUTYNIN CHLOR5 MG PO; +VANCOMYCIN 1 GM/1 G1 IV
[2017-09-19 19:17] VITALS: BP 138/60
[2017-09-19 22:51] VITALS: BP 138/60; BMI 32.5
[2017-09-20 06:15] LABS: BASOPHILS 0.3 % (0-2); EOSINOPHILS 7.8 % (0-7); HEMATOCRIT 26.6 % (36.0-48.0); HEMOGLOBIN 8.7 g/dL (12-16); IMMATURE GRANULOCYTES 0.3 % (0-5); MCH 27.5 pg (26.0-34.0); MCHC 32.7 g/dL (31.0-37.0); MCV 84.2 fL (80.0-100.0); MEAN PLATELET VOLUME 9.2 fL (7.4-10.4); MONOCYTES 12.2 % (2-11); NEUTROPHILS 62.4 % (40-80); PLATELET COUNT 301 10x3/uL (130-400); RBC 3.16 10x6/uL (4.00-5.40); RDW 13.7 % (11.5-14.5); WBC 10.3 10x3/uL (4.8-10.8)
[2017-09-20 06:23] LABS: ANION GAP 12.6 mmol/L (8-16); CALCIUM 8.2 mg/dL (8.5-10.1); CARBON DIOXIDE 25.6 mmol/L (21.0-32.0); CREATININE - SERUM 1.3 mg/dL (0.6-1.3); POTASSIUM - SERUM 4.2 mmol/L (3.5-5.1)
[2017-09-20 08:30] VITALS: BP 162/63
[2017-09-20 13:18] VITALS: Ht 167.6 cm; Wt 91.2 kg
[2017-09-20 14:51] LABS: APPEARANCE HAZY (CLEAR); BILIRUBIN NEGATIVE (NEGATIVE); COLOR YELLOW (YELLOW); GLUCOSE NEGATIVE (NEGATIVE); KETONE NEGATIVE (NEGATIVE); NITRITE NEGATIVE (NEGATIVE); PROTEIN NEGATIVE (NEGATIVE); SPECIFIC GRAVITY 1.015 (1.005-1.020); UROBILINOGEN NORMAL (NORMAL)
[2017-09-20 14:52] LABS: BACTERIA MODERATE /hpf (NONE SEEN); EPITHELIAL CELLS 0-5 /hpf (0-5); RED CELLS - URINE 0-5 /hpf (0-5); WHITE CELLS - URINE 25-50 /hpf (0-5)
[2017-09-20 14:53] LABS: YEAST >1+ WITH HYPHAE /hpf (NONE SEEN)
[2017-09-20 23:59] VITALS: BP 119/54
[2017-09-21 08:00] VITALS: BP 145/66
[2017-09-21 19:38] VITALS: BP 138/75
[2017-09-22 08:00] VITALS: BP 137/73
[2017-09-23 02:00] VITALS: BP 135/69
[2017-09-23 07:13] LABS: BASOPHILS 0.3 % (0-2); EOSINOPHILS 10.3 % (0-7); HEMATOCRIT 30.3 % (36.0-48.0); HEMOGLOBIN 9.9 g/dL (12-16); IMMATURE GRANULOCYTES 0.3 % (0-5); LYMPHOCYTES 19.3 % (15-50); MCH 27.9 pg (26.0-34.0); MCHC 32.7 g/dL (31.0-37.0); MCV 85.4 fL (80.0-100.0); MEAN PLATELET VOLUME 9.1 fL (7.4-10.4); MONOCYTES 13.2 % (2-11); NEUTROPHILS 56.6 % (40-80); PLATELET COUNT 313 10x3/uL (130-400); RBC 3.55 10x6/uL (4.00-5.40); RDW 13.9 % (11.5-14.5); WBC 8.7 10x3/uL (4.8-10.8)
[2017-09-23 07:29] LABS: ANION GAP 11.9 mmol/L (8-16); CALCIUM 8.7 mg/dL (8.5-10.1); CREATININE - SERUM 1.3 mg/dL (0.6-1.3); POTASSIUM - SERUM 3.9 mmol/L (3.5-5.1); VANCOMYCIN - RANDOM 19.5 ug/mL (10.0-20.0)
[2017-09-23 07:40] VITALS: BP 136/68
[2017-09-23 19:19] VITALS: BP 130/61
[2017-09-24 08:00] VITALS: BP 118/54
[2017-09-24 19:09] VITALS: BP 125/59
[2017-09-25 08:00] VITALS: BP 122/52
[2017-09-25 08:05] LABS: BASOPHILS 0.2 % (0-2); EOSINOPHILS 8.1 % (0-7); HEMATOCRIT 28.1 % (36.0-48.0); HEMOGLOBIN 9.4 g/dL (12-16); IMMATURE GRANULOCYTES 0.2 % (0-5); LYMPHOCYTES 20.3 % (15-50); MCH 28.5 pg (26.0-34.0); MCHC 33.5 g/dL (31.0-37.0); MCV 85.2 fL (80.0-100.0); MEAN PLATELET VOLUME 9.5 fL (7.4-10.4); MONOCYTES 12.1 % (2-11); NEUTROPHILS 59.1 % (40-80); PLATELET COUNT 361 10x3/uL (130-400); RDW 14.1 % (11.5-14.5); WBC 8.3 10x3/uL (4.8-10.8)
[2017-09-25 08:29] LABS: CALCIUM 8.7 mg/dL (8.5-10.1); CREATININE - SERUM 1.3 mg/dL (0.6-1.3); VANCOMYCIN - RANDOM 15.8 ug/mL (10.0-20.0)
[2017-09-25] MEDS ORDERED: LEVAQUIN500 MG PO (09:05)
== END 2017-09-25 10:42 | DRG 91 ==
LOC: D.REHAB 16:23
PROVIDERS: Emergency Medicine
DX: G72.89 Other specified myopathies (principal); G93.41 Metabolic encephalopathy; N18.4 Chronic kidney disease, stage 4 (severe); N17.9 Acute kidney failure, unspecified; N39.0 Urinary tract infection, site not specified; R13.11 Dysphagia, oral phase; E11.65 Type 2 diabetes mellitus with hyperglycemia; E11.22 Type 2 diabetes mellitus with diabetic chronic kidney disease; I12.9 Hypertensive chronic kidney disease with stage 1 through stage 4 chronic kidney disease, or unspecified chronic kidney disease; E11.43 Type 2 diabetes mellitus with diabetic autonomic (poly)neuropathy; K31.84 Gastroparesis; D50.9 Iron deficiency anemia, unspecified; R54 Age-related physical debility; K21.9 Gastro-esophageal reflux disease without esophagitis; M19.90 Unspecified osteoarthritis, unspecified site; Z86.73 Personal history of transient ischemic attack (TIA), and cerebral infarction without residual deficits

== ENCOUNTER → 2018-11-01 13:59 | Outpatient (CLI) | payer MEDICARE ==
[2017-09-20 13:18] VITALS: BMI 32.4
[~2018-11-01 13:59] MED LIST changes: +LEVAQUIN500 MG PO
[2018-11-01 15:26] LABS: HEMATOCRIT 34.4 % (36.0-48.0); HEMOGLOBIN 12.1 g/dL (12-16); MCH 29.1 pg (26.0-34.0); MCHC 35.2 g/dL (31.0-37.0); MCV 82.7 fL (80.0-100.0); MEAN PLATELET VOLUME 9.9 fL (7.4-10.4); RBC 4.16 10x6/uL (4.00-5.40); RDW 13.1 % (11.5-14.5); WBC 10.4 10x3/uL (4.8-10.8)
[2018-11-01 15:28] LABS: PLATELET COUNT 237 10x3/uL (130-400)
[2018-11-01 15:35] LABS: APPEARANCE HAZY (CLEAR); BILIRUBIN NEGATIVE (NEGATIVE); COLOR YELLOW (YELLOW); GLUCOSE NEGATIVE (NEGATIVE); KETONE NEGATIVE (NEGATIVE); NITRITE POSITIVE (NEGATIVE); PROTEIN 1+ mg/dL (NEGATIVE); SPECIFIC GRAVITY 1.015 (1.005-1.020); UROBILINOGEN NORMAL (NORMAL)
[2018-11-01 15:36] LABS: ALBUMIN 3.4 g/dL (3.4-5.0); ANION GAP 12.7 mmol/L (8-16); BACTERIA MODERATE /hpf (NONE SEEN); BILIRUBIN - TOTAL 0.34 mg/dL (0.2-1.3); CALCIUM 8.6 mg/dL (8.5-10.1); CARBON DIOXIDE 25.1 mmol/L (21.0-32.0); CREATININE - SERUM 1.4 mg/dL (0.6-1.3); POTASSIUM - SERUM 4.8 mmol/L (3.5-5.1)
[2018-11-01 15:37] LABS: LYMPHOCYTES 21 % (15-50); MONOCYTES 10 % (2-11); NEUTROPHILS 69 % (40-80)
[2018-11-01 15:38] LABS: PLATELET ESTIMATE NORMAL
== END | disposition home or self-care (01) ==
LOC: D.LABREF 13:59
PROVIDERS: ATTEND Family Medicine
DX: R50.9 Fever, unspecified (principal); R33.9 Retention of urine, unspecified

== ENCOUNTER → 2019-08-29 07:44 | Outpatient (CLI) | payer MEDICARE ==
[2017-09-20 13:18] VITALS: BMI 32.4
[2019-08-29 07:59] LABS: BILIRUBIN NEGATIVE (NEGATIVE); GLUCOSE NEGATIVE (NEGATIVE); KETONE NEGATIVE (NEGATIVE); NITRITE POSITIVE (NEGATIVE); UROBILINOGEN NORMAL (NORMAL)
[2019-08-29 08:02] LABS: BACTERIA MODERATE /hpf (NEGATIVE); EPITHELIAL CELLS NSEEN /hpf (0-5); RED CELLS - URINE 0-5 /hpf (0-5)
== END | disposition home or self-care (01) ==
LOC: D.LABREF 07:44
PROVIDERS: ATTEND Family Medicine
DX: N39.0 Urinary tract infection, site not specified (principal)

== ENCOUNTER → 2020-01-18 19:43 | Outpatient (CLI) | payer MEDICARE ==
[2017-09-20 13:18] VITALS: BMI 32.4
== END | disposition home or self-care (01) ==
LOC: D.LABREF 19:43
PROVIDERS: ATTEND Family Medicine
DX: A04.72 Enterocolitis due to Clostridium difficile, not specified as recurrent (principal); N18.5 Chronic kidney disease, stage 5; T83.518A Infection and inflammatory reaction due to other urinary catheter, initial encounter

== ENCOUNTER → 2020-02-29 19:17 | Outpatient (CLI) | payer MEDICARE ==
[2017-09-20 13:18] VITALS: BMI 32.4
[2020-02-29 22:53] LABS: BACTERIA MANY HPF (NONE SEEN); BILIRUBIN NEGATIVE (NEGATIVE); EPITHELIAL CELLS 0-5 /hpf (0-5); KETONE NEGATIVE (NEGATIVE); NITRITE NEGATIVE (NEGATIVE); UROBILINOGEN NORMAL mg/dL (< 2)
== END | disposition home or self-care (01) ==
LOC: D.LABREF 19:17
PROVIDERS: ATTEND Family Medicine
DX: N39.0 Urinary tract infection, site not specified (principal); N18.3 Chronic kidney disease, stage 3 (moderate); I13.0 Hypertensive heart and chronic kidney disease with heart failure and stage 1 through stage 4 chronic kidney disease, or unspecified chronic kidney disease; E11.22 Type 2 diabetes mellitus with diabetic chronic kidney disease

== ENCOUNTER → 2020-08-04 13:09 | Outpatient (CLI) | payer MEDICARE ==
[2020-07-26 13:30] VITALS: BMI 33.4
[~2020-08-04 13:09] MED LIST changes: +AMIODARONE HCL200 MG PO; +AZITHROMYCIN500 MG PO; +HUMULIN R100 UNIT/1 SC; +LOVENOX40 MG/0.4 SC; +MACROBID100 MG PO; +OMNICEF300 MG PO; +VENTOLIN HFA [SP8 GM INH
[2020-08-04 13:58] LABS: BILIRUBIN NEGATIVE (NEGATIVE); KETONE NEGATIVE (NEGATIVE); NITRITE NEGATIVE (NEGATIVE); UROBILINOGEN NORMAL mg/dL (< 2)
== END | disposition home or self-care (01) ==
LOC: D.LABREF 13:09
PROVIDERS: ATTEND Family Medicine
DX: Z46.6 Encounter for fitting and adjustment of urinary device (principal); I13.0 Hypertensive heart and chronic kidney disease with heart failure and stage 1 through stage 4 chronic kidney disease, or unspecified chronic kidney disease; N39.0 Urinary tract infection, site not specified; N18.9 Chronic kidney disease, unspecified